=== PATIENT | female | born 1985 | race Hispanic/Latino ===

== ENCOUNTER 2022-10-03 20:27 | Emergency (ER) | payer SELFPAY ==
[2022-10-03] MEDS ORDERED: Ipratropium/Albuterol 3 ML NEB ONE (20:51)
[2022-10-03] MEDS ORDERED: Dexamethasone 10 MG/ML VIAL ONE (21:02)
== END 2022-10-03 23:25 | disposition home or self-care (01) ==
LOC: CSHERS 20:27
DX: J45.901 Unspecified asthma with (acute) exacerbation (principal)
CPT/HCPCS: J1100; J7611; J7620